=== PATIENT | male | born 1960 | race Caucasian/White ===

== ENCOUNTER → 2020-04-22 09:04 | Outpatient (BNVA) | payer MEDICARE, SELFPAY | PROVIDERS: PCP Nurse Practitioner Family; Referring Provider Family Medicine; Visit Provider Nurse Practitioner | DX: E11.40 Type 2 diabetes mellitus with diabetic neuropathy, unspecified (principal); G89.29 Other chronic pain; Z87.891 Personal history of nicotine dependence | CPT/HCPCS: 99203; 99999 ==

== ENCOUNTER → 2020-05-03 09:32 | Outpatient (BNVA) | payer MEDICARE, SELFPAY | PROVIDERS: PCP Nurse Practitioner Family; Referring Provider Nurse Practitioner; Visit Provider Anesthesiology Pain Medicine | DX: M47.816 Spondylosis without myelopathy or radiculopathy, lumbar region (principal); M54.16 Radiculopathy, lumbar region; M54.9 Dorsalgia, unspecified; M19.019 Primary osteoarthritis, unspecified shoulder; M79.605 Pain in left leg; Z79.891 Long term (current) use of opiate analgesic | CPT/HCPCS: 99204; 99205 ==

== ENCOUNTER → 2020-05-13 09:38 | Outpatient (BNVA) | payer MEDICARE, SELFPAY | PROVIDERS: PCP Nurse Practitioner Family; Visit Provider Specialist | DX: G56.01 Carpal tunnel syndrome, right upper limb (principal); G62.9 Polyneuropathy, unspecified | CPT/HCPCS: 95910 ==

== ENCOUNTER → 2020-07-10 09:34 | Outpatient (BNVA) | payer MEDICARE, SELFPAY | PROVIDERS: PCP Nurse Practitioner Family; Visit Provider Anesthesiology Pain Medicine | DX: M54.42 Lumbago with sciatica, left side (principal); M47.816 Spondylosis without myelopathy or radiculopathy, lumbar region; M54.16 Radiculopathy, lumbar region; M47.812 Spondylosis without myelopathy or radiculopathy, cervical region; M54.9 Dorsalgia, unspecified; M19.011 Primary osteoarthritis, right shoulder; Z79.891 Long term (current) use of opiate analgesic | CPT/HCPCS: 99214 ==

== ENCOUNTER 2020-07-23 12:39 | Outpatient (CLI) | payer MEDICARE, SELFPAY ==
--- NOTE | 2020-07-23 12:47 | XR_ITS ---
WS: [id number] CERVICAL SPINE 5 VIEWS HISTORY: pain COMPARISON: None available. TECHNIQUE: AP, oblique and lateral radiographs. Straightening of the normal cervical lordosis. Disc spaces and vertebral body heights are normal. No prevertebral soft tissue edema. Bilateral cervical foramina are patent. Lateral masses of C1 and C2 a re aligned. XR/XR cervical spine 4-5V [id number] IMPRESSION: Minimal spondylitic changes cervical spine.
--- NOTE | 2020-07-23 12:48 | MR_ITS ---
WS: [id number] MRI RIGHT SHOULDER HISTORY: M12.819 Other specific arthropathies, injury 3 years ago. COMPARISON: None available. TECHNIQUE: Multiplanar sequences of the shoulder joint are submitted. Moderate arthropathy at the AC joint. Hypertrophic bone formation involving the distal clavicle with increased signal throughout the AC ligament. Mild encroachment upon the anterior supraspinatus muscle . There is very small amount of fluid in the subacromial bursa. There is thickening and increased signal in the distal supraspinatus and subscapularis tendons. No fu ll-thickness tear but there is significant fraying along the articular surface of the anterior supras pinatus and subscapularis tendons. No muscle atrophy or edema. There is abnormal signal in the biceps tendon. There is thickening of the tendon with tendinopathy an d suspect a small tear. Narrowing of the glenohumeral joint. There is a cyst in the glenoid towards the posterior superior ri m with fraying and loss of the normal cartilage. Abnormal signal in the anterior superior labrum. The entire labrum and surface of the cartilage is abnormal. MR/MR shoulder RT wo con* [id number] IMPRESSION: 1. Moderate arthritis of the AC joint with encroachment upon the anterior supr aspinatus muscle and tendon. 2. Moderate glenohumeral joint arthritis with narrowing of the joint space, lo ss of cartilage and subchondral cystic changes along the glenoid. Diffusely abn ormal labrum. Torn and avulsed anterior superior labrum and the posterior infer ior labrum is also abnormal. 3. Moderate tendinopathy subscapularis and supraspinatus tendons. 4. Partially torn biceps tendon as it exits the bicipital groove.
== END 2020-07-23 12:40 | disposition home or self-care (01) ==
LOC: RADWPI 12:47
PROVIDERS: PCP Nurse Practitioner Family; Visit Provider Anesthesiology Pain Medicine
DX: M54.2 Cervicalgia (principal); M12.819 Other specific arthropathies, not elsewhere classified, unspecified shoulder; M13.811 Other specified arthritis, right shoulder; S46.211A Strain of muscle, fascia and tendon of other parts of biceps, right arm, initial encounter; X58.XXXA Exposure to other specified factors, initial encounter
CPT/HCPCS: 72050; 73221

== ENCOUNTER → 2020-11-20 09:14 | Outpatient (BNVA) | payer MEDICARE, SELFPAY | PROVIDERS: PCP Nurse Practitioner Family; Referring Provider Anesthesiology Pain Medicine; Visit Provider Specialist | DX: M25.511 Pain in right shoulder (principal) | CPT/HCPCS: 73030 ==

== ENCOUNTER → 2021-02-07 08:10 | Outpatient (BNVA) | payer MEDICARE, SELFPAY | PROVIDERS: PCP Nurse Practitioner Family; Visit Provider Anesthesiology Pain Medicine | DX: G89.29 Other chronic pain (principal); M25.561 Pain in right knee; M25.552 Pain in left hip; M54.9 Dorsalgia, unspecified; M47.816 Spondylosis without myelopathy or radiculopathy, lumbar region; M19.011 Primary osteoarthritis, right shoulder; M54.16 Radiculopathy, lumbar region; Z79.899 Other long term (current) drug therapy; Z79.891 Long term (current) use of opiate analgesic | CPT/HCPCS: 20610; 73502; 99215; J1030; J3490 ==

== ENCOUNTER 2021-02-07 10:36 | Outpatient (CLI) | payer MEDICARE, SELFPAY ==
--- NOTE | 2021-02-07 10:54 | XR_ITS ---
WS: [id number] Exam: XR hip LT 2-3V wo/w pel* [id number] Date/Time of Exam: 02/07/2021 11:07 AM Reason For Exam: M25.559 - Pain in unspecified hip No fracture or dislocation. Moderate degenerative change of the acetabulum. Acetabular morphology not ed that might predispose this patient to femoral acetabular impingement. Soft tissue calcification al lisa the greater trochanter which might be seen with calcific bursitis. XR/XR hip LT 2-3V wo/w pel* [id number] IMPRESSION: 1. No fracture or dislocation. 2. Moderate degenerative change and hypertrophic spurring of the acetabulum whi ch might predispose the patient to femoral acetabular impingement. 3. Soft tissue calcification along the greater trochanter that might be seen wi th calcific bursitis.
== END 2021-02-07 10:37 | disposition home or self-care (01) ==
PROVIDERS: PCP Nurse Practitioner Family; Visit Provider Anesthesiology Pain Medicine
DX: M25.552 Pain in left hip (principal)
CPT/HCPCS: 73502

== ENCOUNTER → 2021-07-24 08:54 | Outpatient (BNVA) | payer MEDICARE, SELFPAY | PROVIDERS: PCP Nurse Practitioner Family; Visit Provider Anesthesiology Pain Medicine | DX: G89.29 Other chronic pain (principal); M54.16 Radiculopathy, lumbar region; M47.816 Spondylosis without myelopathy or radiculopathy, lumbar region; M19.019 Primary osteoarthritis, unspecified shoulder; M25.559 Pain in unspecified hip; M79.605 Pain in left leg; Z79.891 Long term (current) use of opiate analgesic | CPT/HCPCS: 99214 ==